=== PATIENT | male | born 1980 | race Two or more races ===

== ENCOUNTER 2018-05-07 13:29 | Emergency (ER) | payer BC ==
[~2018-05-07] VITALS: Ht 175.3 cm; Wt 75.0 kg
[2018-05-07] MEDS ORDERED: IBUPROFEN 800MG TABLET PO ONE (15:30)
[2018-05-07 16:09] VITALS: BP 145/96
== END 2018-05-07 16:52 | disposition home or self-care (01) ==
LOC: ER 13:29
DX: T22.112A Burn of first degree of left forearm, initial encounter (principal); T22.10XA Burn of first degree of shoulder and upper limb, except wrist and hand, unspecified site, initial encounter; S60.011A Contusion of right thumb without damage to nail, initial encounter; S16.1XXA Strain of muscle, fascia and tendon at neck level, initial encounter; F17.200 Nicotine dependence, unspecified, uncomplicated; V49.88XA Car occupant (driver) (passenger) injured in other specified transport accidents, initial encounter; Y93.89 Activity, other specified; Y92.89 Other specified places as the place of occurrence of the external cause; Y99.8 Other external cause status
CPT/HCPCS: 29130; 73140; 96372; 99283